=== PATIENT | male | born 1985 | race Two or more races ===

== ENCOUNTER 2024-03-03 06:55 | Day surgery (SDC) | payer MEDICAID, SELFPAY ==
--- NOTE | 2024-03-02 07:00 | EKG_ITS ---
[facility] Test Date: 2024-03-02 Pat Name: OLYA FRASER Department: Room: - Gender: Male Chancellor: MIRNA : 1985 Requested By: Kp Montoya Order Number: [id number] Reading MD: Kp Montoya Measurements Intervals [place] Rate: 62 P: 47 VA: 153 QRS: 86 QRSD: 94 T: 71 QT: 377 QTc: 385 Interpretive Statements SINUS RHYTHM EARLY REPOLARIZATION No previous ECG available for comparison /[id number]/[email or web address]/[id number].pdf
[2024-03-02 07:41] VITALS: BMI 22.3
[2024-03-02 08:05] LABS: Collection Type, Urine Clean Catch
[2024-03-02 08:24] LABS: Basophils % (Auto) 1 % (0-2.5); Eosinophils # (Auto) 0.7 Thou/mm3 (0.0-0.5); Eosinophils % (Auto) 9 % (0-10); Hematocrit 42.6 % (41.0-53.0); Hemoglobin 14.7 g/dL (13.5-16.0); Immature Granulocytes % (Auto) 0 % (0-0); Immature Granulocytes Auto 0.02 Thou/mm3 (0.00-0.00); Lymphocytes # (Auto) 2.6 Thou/mm3 (1.0-4.8); Lymphocytes % (Auto) 33 % (10-50); Mean Corpuscular HGB Conc 34.5 g/dl (31.0-37.0); Mean Corpuscular Hemoglobin 28.9 pg (25.0-35.0); Mean Corpuscular Volume 84 fL (80-100); Monocytes # (Auto) 0.7 Thou/mm3 (0.0-0.8); Monocytes % (Auto) 9 % (0-12); Neutrophils # (Auto) 3.8 Thou/mm3 (1.8-7.7); Neutrophils % (Auto) 49 % (37-80); Nucleated Red Blood Cell % 0 /100 WBC (0); Platelet Count 294 Thou/mm3 (140-440); RDW Standard Deviation 37.4 fL (35.1-43.9); Red Blood Count 5.09 Miln/mm3 (4.50-5.90); White Blood Count 7.7 Thou/mm3 (3.8-10.6)
[2024-03-02 08:29] LABS: Bacteria,Urine Rare; Bilirubin,Urine Negative (Negative); Blood,Urine Negative (Negative); Clarity,Urine Clear (Clear/Hazy); Color,Urine Yellow (Lt Yel-Yel); Glucose, Urine Negative (Negative); Ketones,Urine Negative (Negative); Leukocyte Esterase,Urine Negative (Negative); Nitrite,Urine Negative (Negative); Protein,Urine Trace (Neg - Trace); RBC,Urine 4 /hpf (0-3); Specific Gravity,Urine 1.027 (1.001-1.035); Squamous Epithelial Cell,Urine < 1 /hpf (0-5); Urobilinogen,Urine Negative mg/dL (0.0-1.0); WBC,Urine 4 /hpf (0-5)
[2024-03-02 08:43] LABS: Anion Gap 3 (7-16); BUN/Creatinine Ratio 11 Ratio (12-20); Blood Urea Nitrogen 9 mg/dL (9-23); Calcium 9.8 mg/dL (8.3-10.6); Carbon Dioxide 31.6 mMol/L (20.0-31.0); Chloride 103 mMol/L (98-107); Creatinine (Component) 0.8 mg/dL (0.6-1.3); Estimated Creatinine Clearance 105.6 mL/min (>60); Glucose 91 mg/dL (74-106); Osmolality,Calculated 274 (275-295); Potassium 4.1 mMol/L (3.4-5.1); Sodium 138 mMol/L (136-145); eGFR > 60 See Note
[2024-03-03] VITALS (11 sets, daily range): BP systolic 110–121; BP diastolic 82–96; PULSE 61–106; RESP 12–19; TEMP 36.3–36.5; O2SAT 98–100; BMI 21.9
--- NOTE | 2024-03-03 06:00 | XR_ITS ---
Examination: Abdomen AP single view Technique: AP portable supine abdomen, single view Exam date and time: March 03, 2024 0743 hours INDICATIONS: Preop lithotripsy, history kidney stones. FINDINGS: 12 mm calculus in distribution of the right ureteropelvic junction 10 mm calculus lower pole left kidney Nonobstructive bowel gas pattern IMPRESSION: Bilateral renal calculi
--- NOTE | 2024-03-03 07:53 | ESHP_ITS ---
RE: OLAY FRASER : 1985 DATE OF ADMISSION: 03/03/2024 HISTORY OF PRESENT ILLNESS: The patient is a 38-year-old male who was referred to me. He is a gentleman from [facility]. He has a history of bilateral renal calculi. The patient has some problem in his back, which right side bother him more. He had a history of stones in the past. PAST SURGICAL HISTORY: Previous surgery is none. PAST MEDICAL HISTORY: There is no history of diabetes mellitus. No history of hypertension. SOCIAL HISTORY: He has three children. MEDICATIONS: None. ALLERGIES: NONE. PHYSICAL EXAMINATION: HEENT: Normal. NECK: Supple. LUNGS: Clear. CARDIOVASCULAR: Heart sounds are normal. ABDOMEN: Soft. LABORATORY DATA: X-rays of the abdomen revealed a 9 mm calculus over the lower pole of the left kidney and 11 mm calculus in the right kidney. IMPRESSION: 1. Bilateral renal calculi. 2. Bilateral flank pain. PLAN: Cystoscopy, bilateral ureteral stent insertion, and bilateral ESWL. Procedure, risks and complications have been discussed with the patient. The patient has understood them and agreed to proceed. DT: 12:16:58 TT: 15:19:00 Ref: [id number] - TID: [id number]
[2024-03-03] MEDS: RINGERS LACTATED 500 ML 500 ML 20 ML IV (08:01)
--- NOTE | 2024-03-03 10:45 | SUR.PHASEI ---
unable to take BP for 15 minutes due to pt moving around in bed
--- NOTE | 2024-03-03 10:57 | SUR.PHASEI ---
1029: pt arrived to PACU with eyes closed, breathing unlabored, upon connection monitors pt became agitated-kicking, flailing arms, and trying to bite nurses/anesthesiologist, seizure pads placed on gurney for protection due to pt putting arms and legs through side rails while agitated, Shahid DENISE at bedside and attempted to administer Versed, during medication administration attempt from Shahid, pt accidentally removed IV. Pt continued to try to climb out of bed but was not able to communicate needs verbally. nurses continuously attempted to calm pt and reassure him verbally. IV attempts were made but unsuccessful due to pt moving and flailing arms in gurney. 1045: pt verbally stated that he needed to urinate and was having pain, urinal was provided but pt was unable to urinate. pt continued to be agitated. Dr Montoya notified and straight catheterization ordered by Dr Montoya. 1053: straight cath inserted and draining pink tinged urine. 625 mL of urine drained, straight cath removed and intact. pt is calm and relaxed at this time. 1057. 20 guage IV inserted by Shahid Courtney. Pt remains calm and resting comfortably in [place] at this time.
--- NOTE | 2024-03-03 11:21 | SUR.PHASEII ---
pt disconnected from monitors to ambulate to bathroom to urinate per pt request
--- NOTE | 2024-03-03 11:42 | SUR.PHASEII ---
pt returned to [facility] and monitors connected. pt able to urinate pink tinged urine and ambulate with steady gait.
[2024-03-03] MEDS: HYDROmorphone INJ 2 MG/ML VIAL 0.4 MG IV (11:49)
--- NOTE | 2024-03-03 12:05 | SUR.PHASEII ---
pt up to ambulate to bathroom to urinate
--- NOTE | 2024-03-03 12:22 | SUR.PHASEII ---
pt awake, alert, able to follow commands, breathing unlabored, pt able to ambulate with steady gait to bathroom, pt urinated pink tinged urine, discharge instructions given, pt discharged via wheelchair with all belongings and copies of discharge paperwork.
--- NOTE | 2024-03-03 16:55 | ESOP_ITS ---
RE: OLYA FRASER : 1985 DATE OF OPERATION: 03/03/2024 PREOPERATIVE DIAGNOSES: Bilateral renal calculi. The patient has right ureteropelvic junction stone about 8 mm in size. The patient has left renal stone 6 mm in size mid pole. POSTOPERATIVE DIAGNOSES: Bilateral renal calculi. The patient has right ureteropelvic junction stone about 8 mm in size. The patient has left renal stone 6 mm in size mid pole. PROCEDURES PERFORMED: Cystoscopy, dilatation of bulbar urethral stricture, insertion of right ureteral stent. ESWL for right renal stone. ESWL for left renal stone. ANESTHESIA: General. INDICATION: The patient is a 38-year-old gentleman from [facility] with bilateral renal stones. He has been having a lot of pain on the right side. The patient has a stone 8 mm in size located at the right ureteropelvic junction. The patient also has a left renal stone 6 mm in size in the mid pole. The patient has bilateral phleboliths in the pelvis, which are outside the urinary tract. The patient was brought in for cystoscopy, right ureteral stent insertion, and bilateral ESWL. Plan, procedure risks and complications have been discussed with the patient. The patient understood them and agreed to proceed. DESCRIPTION OF PROCEDURE: After the patient was brought to the operating table under adequate general anesthesia and dorsal lithotomy position, parts were prepped and draped in the usual fashion. Cystoscopy was then carried out which revealed adequate urethral meatus, normal appearing urethra. There is a bulbar urethral stricture, which is not extremely tight. It was dilated. The scope was introduced into the bladder. Prostate appears to be moderate size. There are no intravesical stones or tumors. Ureteral orifices are visualized. Open tip ureteral catheter was introduced into the right ureteral orifice and a guidewire was inserted through the ureteral catheter all the way up to the right kidney. A 6-Monegasque x 26 cm double-J right ureteral stent was inserted over the guidewire under C-arm fluoroscopy control so as the proximal loop of the stent is lying in the right renal pelvis and distal loop is in the bladder. The stone appears to be next to the right ureteral stent at the ureteropelvic junction area, which is 8 mm in size. Cystoscopy was then terminated. The scopes were removed. The patient was then put on Dornier Delta III lithotripsy machine. 2500 shocks were given to the right ureteropelvic junction stone, which is 8 mm in size. After this, the patient was then treated for the left renal stone, which is about 6 mm in size. 2500 shocks were given to this stone. The patient tolerated the entire procedure well and left the room in good condition. DT: 10:25:30 TT: 16:54:00 Ref: [id number] - TID: [id number]
== END 2024-03-03 12:22 | disposition home or self-care (01) ==
PROVIDERS: Referring Provider Surgery; Visit Provider Surgery
PROC: 0TJB8ZZ Inspection of Bladder, Via Natural or Artificial Opening Endoscopic (ICD-10-PCS; CPT 52000; principal; 2024-03-03 08:30)
PROC: (CPT 50590; 2024-03-03 08:30)
DX: N20.2 Calculus of kidney with calculus of ureter (principal); Z01.810 Encounter for preprocedural cardiovascular examination
CPT/HCPCS: 50590; 52332; 36415; 74018; 80048; 81001; 85025; 93005; A4217; A4649; C2617; J0131; J0694; J1940; J2250; J2704; J3010; J3490; J7120; J1596

== ENCOUNTER → 2024-04-06 | Outpatient (CLI) | payer MEDICAID, SELFPAY ==
--- NOTE | 2024-04-06 12:54 | XR_ITS ---
Examination: Abdomen AP single view Technique: AP portable supine abdomen, single view Exam date and time: April 06, 2024 1600 hours Comparison March 03, 2024 INDICATIONS: History kidney stones post lithotripsy March 03, 2024 FINDINGS: Right ureteral stent satisfactory position The proximal right ureteral calculus is no longer identified 3 mm calculus lower pole left kidney IMPRESSION: The proximal right ureteral calculus is no longer identified 3 mm lower pole left renal calculus
== END | disposition home or self-care (01) ==
PROVIDERS: Referring Provider Surgery; Visit Provider Surgery
DX: N20.0 Calculus of kidney (principal)
CPT/HCPCS: 74018